=== PATIENT | male | born 1955 | race Asian ===

== ENCOUNTER 2017-04-14 19:45 | Inpatient (IN) | payer OTHER ==
[~2017-04-14] VITALS: Ht 152.4 cm; Wt 68.0 kg
[2017-04-14 20:45] LABS: BASOPHIL % 0.5 % (0-2); PLATELET COUNT 284 x10^3mcL (130-400); RED CELL DISTRIBUTION WIDTH 13.5 % (11.5-14.5)
[2017-04-14 21:00] LABS: CALCIUM 8.4 mg/dL (8.5-10.1); CARBON DIOXIDE 20.6 mmol/L (21-32); CHLORIDE SERUM 99 mmol/L (98-107); GFR1 > 60 mL/min; GLUCOSE SERUM 296 mg/dL (74-106); POTASSIUM SERUM 3.8 mmol/L (3.5-5.1); SODIUM SERUM 135 mmol/L (136-145)
[2017-04-14 21:04] LABS: ALKALINE PHOSPHATASE 93 U/L (46-116); ALT/SGPT 42 U/L (16-63); AST/SGOT 40 U/L (15-37); BILIRUBIN TOTAL 0.37 mg/dL (0.20-1.00); TOTAL PROTEIN, SERUM 6.2 g/dL (6.4-8.2)
[2017-04-14 21:06] LABS: ALBUMIN 3.2 g/dL (3.4-5.0)
[2017-04-14] MEDS ORDERED: AMLODIPINE BESYL5 M2 PO (21:28)
[2017-04-14] MEDS ORDERED: GEMFIBROZIL600 MG PO (21:28)
[2017-04-14 23:21] VITALS: BP 137/82
[2017-04-14 23:29] VITALS: Ht 152.4 cm; Wt 68.0 kg
[2017-04-15 01:21] LABS: CALCIUM 7.5 mg/dL (8.5-10.1); CHLORIDE SERUM 105 mmol/L (98-107); CREATININE SERUM 0.8 mg/dL (0.7-1.3); GFR1 > 60 mL/min; GLUCOSE SERUM 194 mg/dL (74-106); POTASSIUM SERUM 4.1 mmol/L (3.5-5.1); SODIUM SERUM 137 mmol/L (136-145)
[2017-04-15 02:09] LABS: T3 TOTAL 1.04 ng/mL
[2017-04-15 03:46] LABS: MAGNESIUM 2.4 mg/dL (1.8-2.4)
[2017-04-15 03:54] LABS: FREE T4 1.02 ng/dL (0.76-1.46); FREE THYROXINE INDEX 2.7 ug/dL (1.4-4.5); T4(THYROXINE) 7.3 ug/dL (4.7-13.3)
[2017-04-15 05:53] VITALS: BP 120/70
[2017-04-15 06:54] LABS: CALCIUM 7.4 mg/dL (8.5-10.1); CARBON DIOXIDE 25.4 mmol/L (21-32); CHLORIDE SERUM 107 mmol/L (98-107); CREATININE SERUM 0.7 mg/dL (0.7-1.3); GFR1 > 60 mL/min; GLUCOSE SERUM 124 mg/dL (74-106); SODIUM SERUM 140 mmol/L (136-145)
[2017-04-15 07:36] LABS: BASOPHIL % 0.3 % (0-2)
[2017-04-15 09:12] VITALS: BP 106/64
[2017-04-15 10:12] LABS: PLATELET COUNT 220 x10^3mcL (130-400)
[2017-04-15 14:05] LABS: rbc morphology (normal/abnorm) ABNORMAL (NORMAL)
[2017-04-15 14:22] VITALS: BP 114/67
[2017-04-15 17:38] VITALS: BP 127/66
[2017-04-15 18:59] LABS: BASOPHIL % 0.3 % (0-2); PLATELET COUNT 219 x10^3mcL (130-400)
[2017-04-15 19:26] LABS: rbc morphology (normal/abnorm) ABNORMAL (NORMAL)
[2017-04-15 21:43] VITALS: BP 128/71
[2017-04-16 06:15] VITALS: BP 114/65
[2017-04-16 07:19] LABS: CALCIUM 7.8 mg/dL (8.5-10.1); CHLORIDE SERUM 101 mmol/L (98-107); CREATININE SERUM 0.8 mg/dL (0.7-1.3); GFR1 > 60 mL/min; GLUCOSE SERUM 134 mg/dL (74-106); POTASSIUM SERUM 3.5 mmol/L (3.5-5.1); SODIUM SERUM 136 mmol/L (136-145)
[2017-04-16 07:24] LABS: CARBON DIOXIDE 25.7 mmol/L (21-32)
[2017-04-16 07:35] LABS: BASOPHIL % 0.5 % (0-2); PLATELET COUNT 253 x10^3mcL (130-400)
[2017-04-16] MEDS ORDERED: FERRALET 901 TAB PO (09:11)
[2017-04-16 09:14] VITALS: BP 114/65
[2017-04-16 09:14] LABS: RED CELL DISTRIBUTION WIDTH 14.6 % (11.5-14.5)
[2017-04-16 09:15] LABS: rbc morphology (normal/abnorm) ABNORMAL (NORMAL)
== END 2017-04-16 09:44 | disposition home or self-care (01) | DRG 919 ==
LOC: ED 19:45 → DU 21:49
PROVIDERS: Emergency Medicine; Student in an Organized Health Care Education/Training Program
PROC: 30233N1 Transfusion of Nonautologous Red Blood Cells into Peripheral Vein, Percutaneous Approach (ICD-10-PCS; principal; 2017-04-15)
DX: L76.22 Postprocedural hemorrhage of skin and subcutaneous tissue following other procedure (principal); N17.0 Acute kidney failure with tubular necrosis; D62 Acute posthemorrhagic anemia; E44.1 Mild protein-calorie malnutrition; R73.9 Hyperglycemia, unspecified; I10 Essential (primary) hypertension; F17.210 Nicotine dependence, cigarettes, uncomplicated; Z98.1 Arthrodesis status; Y83.4 Other reconstructive surgery as the cause of abnormal reaction of the patient, or of later complication, without mention of misadventure at the time of the procedure; Y92.009 Unspecified place in unspecified non-institutional (private) residence as the place of occurrence of the external cause
CPT/HCPCS: 82962; 83880; 84439; J1885; J7030; J7050; P9016; Q0092; Q0163